=== PATIENT | male | born 1985 | race Caucasian/White ===

== ENCOUNTER 2016-11-15 20:24 | Emergency (ER) | payer SELFPAY ==
[~2016-11-15] VITALS: Ht 172.7 cm; Wt 72.0 kg
[2016-11-16] MEDS ORDERED: ONDANSETRON HCL 4MG/2ML VIAL IV STA (00:18)
[2016-11-16] MEDS ORDERED: MORPHINE SULFATE 4 MG/ML CPJ (NOT FOR IM USE) IV STA (00:18)
[2016-11-16] MEDS ORDERED: SODIUM CHLORIDE 0.9% 1,000 ML IV ONE (00:18)
[2016-11-16 01:07] LABS: BASOPHILS % 0.5 % (0.0-2.0); EOSINOPHILS % 1.4 % (0.0-5.0); HEMOGLOBIN. 14.9 g/dL (14.0-18.0); MEAN CORPUSCULAR VOLUME 89.4 fL (80.0-94.0); MEAN PLATELET VOLUME 9.4 fl (7.4-10.4); MONOCYTES % 7.7 % (2.0-8.0); NEUTROPHILS % 55.4 % (40.0-76.0); PLATELET 190 x1000/uL (130-400); RED CELL DISTRIBUTION WIDTH 13.3 % (11.6-14.6)
[2016-11-16 01:12] LABS: CHLORIDE 101 mEq/L (98-107)
[2016-11-16 01:17] LABS: CLARITY URINE CLEAR (CLEAR); COLOR URINE YELLOW (YELLOW); GLUCOSE URINE NEGATIVE (NEGATIVE); KETONES URINE TRACE (NEGATIVE); LEUKOCYTE ESTERASE URINE NEGATIVE (NEGATIVE); NITRITE URINE NEGATIVE (NEGATIVE); OCCULT BLOOD URINE NEGATIVE (NEGATIVE); PH URINE 5.5 (4.5-8.0); PROTEIN URINE NEGATIVE (NEGATIVE); SPECIFIC GRAVITY URINE 1.024 (1.005-1.030); UROBILINOGEN URINE 0.2 E.U./dL (0.2-1.0)
[2016-11-16 01:21] LABS: CARBON DIOXIDE 28 mEq/L (21-32)
[2016-11-16 01:40] VITALS: BP 120/74
== END 2016-11-16 01:42 | disposition home or self-care (01) ==
LOC: ER 11-16 00:35
DX: R11.2 Nausea with vomiting, unspecified (principal); F17.210 Nicotine dependence, cigarettes, uncomplicated
CPT/HCPCS: 36415; 80053; 81003; 85025; 96361; 96374; 96375; 99284; J2270; J2405; J7030; Z7610

== ENCOUNTER 2017-05-11 12:56 | Emergency (ER) | payer MEDICAID ==
[~2017-05-11] VITALS: Ht 172.7 cm; Wt 73.0 kg
[2017-05-11 15:56] VITALS: BP 113/77
== END 2017-05-11 16:58 | disposition home or self-care (01) ==
LOC: ER 13:38
DX: S39.012A Strain of muscle, fascia and tendon of lower back, initial encounter (principal); F12.10 Cannabis abuse, uncomplicated; X58.XXXA Exposure to other specified factors, initial encounter; Y93.9 Activity, unspecified; Y92.9 Unspecified place or not applicable
CPT/HCPCS: 99283

== ENCOUNTER 2019-02-27 19:20 | Emergency (ER) | payer MEDICAID, OTHER ==
[~2019-02-27] VITALS: Ht 172.7 cm; Wt 71.0 kg
[2019-02-28] MEDS ORDERED: KETOROLAC 30MG/ML VIAL IV STA (00:11)
[2019-02-28] MEDS ORDERED: SODIUM CHLORIDE 0.9% 1,000 ML IV ONE (00:11)
[2019-02-28 00:28] LABS: CLARITY URINE CLEAR (CLEAR); COLOR URINE YELLOW (YELLOW); KETONES URINE NEGATIVE (NEGATIVE); LEUKOCYTE ESTERASE URINE NEGATIVE (NEGATIVE); NITRITE URINE NEGATIVE (NEGATIVE); OCCULT BLOOD URINE NEGATIVE (NEGATIVE); PROTEIN URINE NEGATIVE (NEGATIVE); UROBILINOGEN URINE 0.2 E.U./dL (0.2-1.0)
[2019-02-28 00:41] LABS: BASOPHILS % 0.6 % (0.0-2.0); EOSINOPHILS % 0.2 % (0.0-5.0); HEMATOCRIT. 43.1 % (42.0-52.0); HEMOGLOBIN. 14.9 g/dL (14.0-18.0); LYMPHOCYTES % 18.3 % (20.0-50.0); MEAN CORPUSCULAR HEMOGLOBIN 31.4 pg (28.0-32.0); MEAN CORPUSCULAR VOLUME 90.7 fL (80.0-94.0); MEAN PLATELET VOLUME 9.1 fl (7.4-10.4); NEUTROPHILS % 75.9 % (40.0-76.0); PLATELET 210 x1000/uL (130-400); RED BLOOD CELL COUNT 4.75 mill/uL (4.7-6.1); RED CELL DISTRIBUTION WIDTH 13.1 % (11.6-14.6)
[2019-02-28 00:47] LABS: CHLORIDE 108 mEq/L (98-107)
[2019-02-28 03:47] VITALS: BP 118/67
== END 2019-02-28 03:48 | disposition home or self-care (01) ==
LOC: ER 19:20
DX: R53.83 Other fatigue (principal); R11.0 Nausea; M79.10 Myalgia, unspecified site; R68.83 Chills (without fever); E86.0 Dehydration
CPT/HCPCS: 36415; 80053; 81003; 85025; 87804; 96361; 96374; 99283; J1885; J7030; Z7610

== ENCOUNTER 2019-04-06 17:29 | Emergency (ER) | payer SELFPAY ==
[~2019-04-06] VITALS: Ht 165.1 cm; Wt 69.0 kg
[2019-04-06 20:39] VITALS: BP 148/90
== END 2019-04-06 20:40 | disposition home or self-care (01) ==
LOC: ER 17:29
DX: N50.89 Other specified disorders of the male genital organs (principal); R03.0 Elevated blood-pressure reading, without diagnosis of hypertension
CPT/HCPCS: 99283

== ENCOUNTER 2020-11-22 10:36 | Emergency (ER) | payer SELFPAY ==
[~2020-11-22] VITALS: Ht 172.7 cm; Wt 82.0 kg
[2020-11-22 10:58] VITALS: BP 140/90
[2020-11-22] MEDS ORDERED: ACETAMINOPHEN 325MG TABLET PO ONE (12:30)
[2020-11-22] MEDS ORDERED: AMOXICILLIN/POTASSIUM CLAVULANATE 875/125MG TAB PO ONE (13:30)
[2020-11-22] MEDS ORDERED: IBUP-2029 MT (14:19)
[2020-11-22] MEDS ORDERED: AMOX-424 MT (14:19)
== END 2020-11-22 14:46 | disposition home or self-care (01) ==
LOC: ER 10:36
DX: S61.232A Puncture wound without foreign body of right middle finger without damage to nail, initial encounter (principal); W54.0XXA Bitten by dog, initial encounter; Y93.89 Activity, other specified; Y92.89 Other specified places as the place of occurrence of the external cause; Y99.8 Other external cause status
CPT/HCPCS: 73140; 99283; A4217; Z7610

== ENCOUNTER 2020-12-18 17:58 | Emergency (ER) | payer SELFPAY ==
[~2020-12-18] VITALS: Ht 172.7 cm; Wt 81.0 kg
[~2020-12-18 17:58] MED LIST: AMOX-424 MT; IBUP-2029 MT
[2020-12-18 21:49] VITALS: BP 126/68
== END 2020-12-18 21:51 | disposition home or self-care (01) ==
LOC: ER 17:58
DX: Z48.02 Encounter for removal of sutures (principal)
CPT/HCPCS: 99281

== ENCOUNTER 2023-12-29 17:12 | Emergency (ER) | payer OTHER ==
[~2023-12-29] VITALS: Ht 172.7 cm; Wt 77.0 kg
[2023-12-29 18:06] VITALS: BP 156/124; PULSE 94; RESP 16; TEMP 98.3; O2SAT 100
[2023-12-29 19:39] LABS: CLARITY URINE CLEAR (CLEAR); COLOR URINE YELLOW (YELLOW); GLUCOSE URINE NEGATIVE (NEGATIVE); KETONES URINE NEGATIVE (NEGATIVE); LEUKOCYTE ESTERASE URINE NEGATIVE (NEGATIVE); NITRITE URINE NEGATIVE (NEGATIVE); OCCULT BLOOD URINE NEGATIVE (NEGATIVE); PROTEIN URINE NEGATIVE (NEGATIVE); SPECIFIC GRAVITY URINE 1.008 (1.005-1.030); UROBILINOGEN URINE 0.2 E.U./dL (0.2-1.0)
[2023-12-29] MEDS ORDERED: DOXYCYCLINE HYCLATE 100MG CAPSULE PO ONE (20:45)
[2023-12-29] MEDS ORDERED: CEFTRIAXONE SODIUM 500MG VIAL IM ONE (20:45)
[2023-12-29] MEDS: CEFTRIAXONE SODIUM 500MG VIAL IM NR (22:11)
[2023-12-29] MEDS: DOXYCYCLINE HYCLATE 100MG CAPSULE PO NR (22:11)
[2023-12-29] MEDS ORDERED: DOXY100C5 MT (23:30)
== END 2023-12-30 00:04 | disposition home or self-care (01) ==
LOC: ER 17:12
DX: N48.89 Other specified disorders of penis (principal); Z87.442 Personal history of urinary calculi
CPT/HCPCS: 76870; 81003; 93976; 96372; 99285; J0696